=== PATIENT | male | born 1965 | race Caucasian/White ===

== ENCOUNTER 2024-07-11 13:36 | Outpatient (RCR) | payer MEDICAID, SELFPAY ==
--- NOTE | 2024-07-13 08:09 | HP.OTFCE.D_ITS ---
FCE D/C Summary Discharge text: SATNAM Donavon [place] was seen for a one time visit for an FCE on 07/11/24 and is discharged.
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
--- NOTE | 2024-07-13 08:09 | HP.OTFCE.D ---
FCE D/C Summary Discharge text: SATNAM Donavon [place] was seen for a one time visit for an FCE on 07/11/24 and is discharged.
== END 2024-07-11 19:00 | disposition home or self-care (01) ==
LOC: OT 13:36
PROVIDERS: PCP Family Medicine; Referring Provider Family Medicine; Visit Provider Family Medicine
DX: M25.561 Pain in right knee (principal); G89.29 Other chronic pain
CPT/HCPCS: 97750